=== PATIENT | male | born 1985 | race Hispanic/Latino ===

== ENCOUNTER 2018-02-06 22:34 | Emergency (ER) | payer OTHER ==
[~2018-02-06] VITALS: Ht 177.8 cm; Wt 97.5 kg
[2018-02-06] MEDS ORDERED: TRAMADOL HCL 50 MG TAB PO ONE (22:45)
--- NOTE | 2018-02-06 23:28 | Diagnostic Imaging Report ---
KNEE RIGHT THREE VIEWS Comparison: None Clinical history: Status post injury, locked up while playing Findings: Limited portable/crosstable lateral views Intra-articular fracture involving the lateral tibial plateau and metaphysis. Displaced fracture fragment noted anteriorly. Associated joint effusion on crosstable lateral. Impression: Proximal tibial fracture involving the lateral tibial plateau and metaphysis. Signed by: Dr Shahla Ling MD on 02/06/2018 11:24 PM
== END 2018-02-07 00:06 | disposition home or self-care (01) ==
LOC: ER 22:34
DX: S82.141A Displaced bicondylar fracture of right tibia, initial encounter for closed fracture (principal); Y93.67 Activity, basketball; Y92.838 Other recreation area as the place of occurrence of the external cause; S89.001A Unspecified physeal fracture of upper end of right tibia, initial encounter for closed fracture
CPT/HCPCS: 99284